=== PATIENT | female | born 1975 | race Caucasian/White ===

== ENCOUNTER → 2016-12-13 | Outpatient (CLI) | payer OTHER ==
[~2016-12-13] MED LIST: GADOBUTROL 10 ML VIAL IVP ONE; GLUCAGON,HUMAN RECOMBINANT 0.3 MG in SYRINGE 0.3 ML IVP ONE
== END ==
LOC: FIMAGING 06:59
PROVIDERS: ATTEND Internal Medicine Gastroenterology
DX: Z87.19 Personal history of other diseases of the digestive system (principal); K76.0 Fatty (change of) liver, not elsewhere classified
CPT/HCPCS: A9585; J1610

== ENCOUNTER 2016-12-23 11:01 | Day surgery (SDC) | payer OTHER ==
--- NOTE | 2016-12-19 09:39 | PDGENHP ---
History and Physical - Chief Complaint Right Hip Pain - History of Present Illness 1. Right~Hip Pain HISTORY OF PRESENT ILLNESS: Cristalis a 40 y.o.~very~active female~who I have had the pleasure to consult on today.~I have enjoyed meeting her. She~lives in [place]. ~Cristalworks as a Housewife. ~She~is ; she~has two~children. ~Cristalenjoys Running , skiing, gym, hiking. Jennas right~hip pain started several months ago, with no~recalled trauma or injury, and with no~previous complaints.~Cristalhas~a~known history of hip dysplasia. Presentation today is of~C-Pattern right~hip pain. The hip does~wake her~at night and does not~click and catch on her. Sitting can be a real struggle~for her. Cristaldoes not~report suffering from lower back pain episodes. Cristalhas~participated in physical therapy and has~tried other conservative measures including chiropractic treatments. She~has not~received sufficient symptomatic improvement. Cristalhas~utilized medication for pain management, including OTC acetaminophen. Cristalhas used medication intermittently~for several months. Cristaldenies pain~with the left~hip, although she does have significantly decreased motion in the left. Cristalunderstands that she~has a hip and pelvis problem which should be researched and wishes to get a better understanding of her~hip status, followed by an establishment of a treatment strategy, hoping she~would be able to get back to her~well being active life. History: Past medical history: ~ Crohns Relevant familial history: None which is relevant Past surgical history: No. Surgery Anesthesia Year Outcome 1 Left foot bunion surgery General 2013 Good 2 Bowel Resection General 2011 Good Cristaldenies problematic issues with general anesthesia in the past. I have reviewed, verified and agree with the past medical, surgical, family and social history. Current Medications:~has a current medication list which includes the following prescription(s): budesonide, budesonide, enzymes,digestive, ferumoxytol, green tea leaf extract, iron sucrose, lactobac #2-s. therm-bifido #1, leucovorin, methotrexate, omega-3 fatty acids, peg 3350-electrolytes, vedolizumab, vitamin b complex, and zinc gluconate. ALLERGIES:~is allergic to azathioprine. Objective: Physical Examination: Cristalis 5~feet 7~inches tall and weighs~118~Lbs. Cristalis AAO x3; she~is well-nourished, in NAD. Skin is warm and dry. ~Breathing is non-labored. ~CV with RRR by pulse. Abdomen is soft, NTND. Currently, she~walks with a stiff~gait. Trendelenburg sign is negative~and proprioception~is normal, both~sides. She~presents~with no~signs of joint laxity.~Beightons Score: 0 Lower spine examination is negative~for sciatic or femoral nerve irritation with negative~SLR &~femoral stretch tests. Range of motion of the spine is normal~for flexion, extension, and rotations, with no~associated pain. Strength, Sensation and pulses are normal - bilaterally Ankles and knees exams are normal~and no~mal-alignment is evident. She~has~left~1~cm short leg length discrepancy. Thigh circumference is symmetric~with no evidence for muscle atrophy~on both~ sides. Hip ROM (degrees): FL ER At 90~hip FL IR At 90~hip FL AB AD EX IR Neutral hip ER Neutral hip R 95 40 30 40 10 5 55 10 L 100 40 30 30 10 5 55 10 Specific hip and pelvis tests: Quadrant LANA Roll Add. Longus R + Negative Negative + L Negative Negative Negative + Glut. Med ITB Pos. Imp R Negative 5/5 strength Negative 5/5 strength Negative L Negative 5/5 strength Negative 5/5 strength Negative Squeeze test measured normal Bony Symphysis pubis is pain free~to touch while concentric activity of the rectus abdominis, does not~produce pain at its insertion. Ilio Psos specific tests are negative for pain during cycling for both hips~and remarkable for no snap. HF has no pain on ~both hips. Anterior and Posterior capsule tenderness bilaterally Greater trochanteric burse is painful~on both hips. Piriformis tests: FAIR is positive, with~local signs of neuritis related to sciatic nerve on the right. SIJs examination is produces pain on right side~with~abnormal ~~LANA in relation and local tenderness.~ Hamstrings tests are negative~functional contraction and negative~tendinopathy both hips. On a daily basis, the following percentages reflect Esha's overall total pain: She had difficulty pinpointing the main source of her pain or what percentage was due to various sources. Imaging: Radiology studies which I~have personally reviewed, analyzed and measured are below: XR: AP of the hip and pelvis: Performed in a good~technique Coccyx to pubic symphysis distance 1.8~cm. 0~caudal/cephal [place]~Lines are preserved. Minimal~Pathological signs are seen in the Symphysis Pubis. Minimal~Pathological signs are seen at the Ischial~tuberosity. ~ Specific measurements show: NSA~ LCE Sourcil~Angle Sharp's angle Lat. Cam Lat. Pincer C.Over~sign Head~Coverage % ATDmm R N 29 1 46 - - - N N L N 38 2 43 - - 12-12:30 N N Pos. wall sign ISS NAD ~~Dysplasia Comments R Negative Negative 20~mm Negative L Negative Negative 16~mm Negative Sclerosis Sup. Lat. OA Cysts Joint Space-WBZ Joint Space-Medial R Negative Negative Negative 4.0~mm 4.1~mm L Negative Negative Negative 3.7~mm 3.3~mm X Table lateral: Anterior cam lesion is seen~on both hips. Alpha Angle: ~ Right 62~dergrees Left 55~degrees MRI shows: A labral tear In order to differentiate between the various possible sources of pain Cristal opted to move forward with an intra articular injection today in clinic. After verbal consent was obtained and Cristalvoiced understanding of risks of infection, misplaced injection, fat or skin atrophy or injection into unintended structures, skin was prepped and draped in routine sterile fashion. With sterile technique, after local skin and subcutaneous tissues were injected with 5cc 1% lidocaine, an injection of 2cc of Kenalog 40 and 5cc of 1% lidocaine +marcaine~was injected into Esha's hip joint without complication. The procedure was well tolerated. Esha~noted improved symptoms with activity immediately after injection. The injection took 50% of the pain away, confirming ~the hip joint as part of the~source of her~pain. Impression and plan:~ Cristalis a 40 y.o.~active female~suffering from symptomatic right~hip pain causing significant disability to her~and altering~her~sport and life activities.~The source of the pain is due to intra-articular pathology and/or piriformis syndrome. She also likely has some femoral antetorsion based on her range of motion profile. Based on her story, exam, and imaging it was difficult to distinguish between intra-articular pathology and piriformis syndrome as the main source of her pain. Injection given today in clinic did take away 50% of her pain, indicating that at least part of her pathology is intra-articular. We will have a better assessment based on her symptoms over the next several weeks once the steroid component of the injection kicks in. Cristalwill keep a daily log of her pain and return for a follow-up visit in 2 -3 weeks. If the injection has provided significant relief we will order a 3D CT and consider surgical treatment - likely a hip scope and/or DFO. If the injection has not provided much relief we will refer her for a piriformis injection. Cristalis happy with this plan. I have also supplied her~with handouts, outlining the expected surgical treatment and rehab involved. I wish~Esha~all the best, ~~ Sal Koroma MD History Information - Allergies/Home Medication List Allergies/Adverse Reactions: No Known Allergies Allergy (Unverified 10/17/10 13:28) Home Medications: Entyvio 12/09/16 [Last Taken Unknown] Herbals/Supplements -Info Only 12/09/16 [Last Taken Unknown] I have personally reviewed and updated: medical history - Social History Smoking Status: Never smoked
[2016-12-23] MEDS ORDERED: PREGABALIN 150 MG CAP PO ONE (11:13)
[2016-12-23] MEDS ORDERED: ceFAZolin 2 GM/DEXTROSE 100 ML IV ONE (11:13)
[2016-12-23] MEDS ORDERED: ACETAMINOPHEN 500 MG TAB PO ONE (11:13)
[2016-12-23] MEDS ORDERED: LR 1,000 ML IV ONE (11:24)
[2016-12-23] MEDS ORDERED: BUPIVACAINE/EPI 0.25% 30 ML SDV ONE (12:19)
[2016-12-23] MEDS ORDERED: PROPOFOL/EMULSION 500 MG/50 ML BOTTLE IV ONE ×2 (12:46→14:03)
[2016-12-23] MEDS ORDERED: LIDOCAINE 2% 100 MG/5 ML SYR ONE (12:48)
[2016-12-23] MEDS ORDERED: ROCURONIUM 100 MG/10 ML VIAL ONE (12:48)
[2016-12-23] MEDS ORDERED: METOCLOPRAMIDE 10 MG/2 ML VIAL ONE (12:48)
[2016-12-23] MEDS ORDERED: DEXAMETHASONE 4 MG/ML VIAL ONE ×2 (12:48)
[2016-12-23] MEDS ORDERED: MIDAZOLAM 2 MG/2 ML VIAL ONE (12:49)
--- NOTE | 2016-12-23 13:01 | PDANEPAE ---
ANE Past Medical History - Cardiovascular History Hx Hypertension: No Hx Arrhythmias: No Hx Chest Pain: No Hx Coronary Artery / Peripheral Vascular Disease: No Hx CHF / Valvular Disease: No Hx Palpitations: No - Pulmonary History Hx COPD: No Hx Asthma/Reactive Airway Disease: No Hx Recent Upper Respiratory Infection: No Hx Oxygen in Use at Home: No Hx Sleep Apnea: No Sleep Apnea Screening Result - Last Documented: Negative - Neurologic History Hx Cerebrovascular Accident: No Hx Seizures: No Hx Dementia: No - Endocrine History Hx Diabetes: No - Renal History Hx Renal Disorders: No - Liver History Hx Hepatic Disorders: No - Neurological & Psychiatric Hx Hx Neurological and Psychiatric Disorders: No - Cancer History Hx Cancer: Yes Cancer History Comment: squamous cell - Congenital Disorder History Hx Congenital Disorders: No - GI History Hx Gastrointestinal Disorders: Yes Gastrointestinal History Comment: chrons disease - Other Health History Other Health History: neg - Chronic Pain History Chronic Pain: Yes (r hip) - Surgical History Prior Surgeries: bunionectomy l. bowel resection ANE Review of Systems - Exercise capacity METS (RN): 5 METS ANE Patient History - Allergies Allergies/Adverse Reactions: NSAIDS (Non-Steroidal Anti-Inflamma Adverse Reaction (Verified 12/23/16 11:56) - Home Medications Home Medications: Entyvio 12/09/16 [Last Taken 12/16/16] Herbals/Supplements -Info Only 12/09/16 [Last Taken 12/16/16] - NPO status NPO Since - Liquids (Date): 12/23/16 NPO Since - Liquids (Time): 08:00 NPO Since - Solids (Date): 12/22/16 NPO Since - Solids (Time): 19:00 - Smoking Hx Smoking Status: Never smoked - Family Anes Hx Family Hx Anesthesia Complications: neg ANE Labs/Vital Signs - Vital Signs Blood Pressure: 103/68 Heart Rate: 51 Respiratory Rate: 13 O2 Sat (%): 98 Height: 170.18 cm Weight: 53.524 kg ANE Physical Exam - Airway Mallampati Score: Class 1 Mouth exam: normal dental/mouth exam - Pulmonary Pulmonary: no respiratory distress - Cardiovascular Cardiovascular: regular rate and rhythym - ASA Status ASA Status: I
[2016-12-23] MEDS ORDERED: NEOSTIGMINE METHYLSULFATE 5 MG/5 ML SYR ONE (15:31)
[2016-12-23] MEDS ORDERED: GLYCOPYRROLATE 0.2 MG/1 ML VIAL ONE ×2 (15:31)
[2016-12-23] MEDS ORDERED: ACETAMINOPHEN 500 MG TAB PO PRN (16:15)
[2016-12-23] MEDS ORDERED: LR 500 ML IV PRN (16:15)
[2016-12-23] MEDS ORDERED: HYDROCODONE/APAP 5/325 TAB PO PRN (16:15)
[2016-12-23] MEDS ORDERED: NALOXONE HCL 0.4 MG/ML INJ IVP PRN (16:15)
[2016-12-23] MEDS ORDERED: ONDANSETRON 4 MG/2 ML VIAL IVP PRN (16:15)
[2016-12-23] MEDS ORDERED: MEPERIDINE 25 MG/ML SYR IVP PRN (16:15)
[2016-12-23] MEDS ORDERED: OXYCODONE/APAP 5/325 TAB PO PRN (16:15)
[2016-12-23] MEDS ORDERED: fentaNYL 100 MCG/2 ML INJ ONE ×2 (16:16→18:16)
--- NOTE | 2016-12-23 16:16 | POSTANESTH ---
Post Anesthetic Evaluation Respiratory Status: Normal, Stable Level of Consciousness/Mental Status: Can Participate in Eval Pain Control: Adequate, Prn Tx Ordered Nausea/Vomiting Control: Adequate, Prn Tx Ordered Complications Possibly Related to Anesthesia: None Noted
[2016-12-23] MEDS: fentaNYL 100 MCG/2 ML INJ IVP PRN ×3 (16:18→18:23)
[2016-12-23] MEDS ORDERED: HYDROmorphONE/DILAUDID 1 MG/ML SYR ONE ×3 (16:23→18:16)
[2016-12-23] MEDS: HYDROmorphONE/DILAUDID 1 MG/ML SYR IVP PRN ×4 (16:28→18:24)
[2016-12-23] MEDS ORDERED: OXYCODONE/APAP 5/325 TAB ONE (17:02)
[2016-12-23 17:48] VITALS: RESP 18; TEMP 97.5
[2016-12-23 18:09] VITALS: PULSE 46
[2016-12-23 18:39] VITALS: BP 121/80; O2SAT 96
== END 2016-12-23 19:06 | disposition home or self-care (01) ==
LOC: FSGY 11:01
PROVIDERS: ATTEND Orthopaedic Surgery Sports Medicine
PROC: 0QQ64ZZ Repair Right Upper Femur, Percutaneous Endoscopic Approach (ICD-10-PCS; principal; 2016-12-23 12:30)
PROC: 0SQ94ZZ Repair Right Hip Joint, Percutaneous Endoscopic Approach (ICD-10-PCS; principal; 2016-12-23 12:30)
PROC: 0MN Bursae and Ligaments, Release (ICD-10-PCS; principal; 2016-12-23 12:30)
DX: M25.851 Other specified joint disorders, right hip (principal); S73.191A Other sprain of right hip, initial encounter; M16.11 Unilateral primary osteoarthritis, right hip
CPT/HCPCS: 27036; 29914; 29916; 76001; C1769; C1713; J0171; J0690; J1100; J1170; J2001; J2250; J2704; J2710; J2765; J3010